=== PATIENT | female | born 1980 | race Caucasian/White ===

== ENCOUNTER 2017-12-21 08:31 | Observation (INO) | payer MEDICAID ==
[~2017-12-21] VITALS: Ht 157.5 cm; Wt 97.1 kg
[2017-12-21 08:32] VITALS: BP 131/75
--- NOTE | 2017-12-21 08:34 | NUR ---
PT TAKEN TO BED 9.
--- NOTE | 2017-12-21 08:40 | NUR ---
T. CAME INTO ED W/ C/O CHEST PAIN THAT STARTED YESTERDAY MORNING. PT. STATES " MY CHEST HURTS SINCE YESTERDAY MORNING AND ITS CONTINOUS AND SHARP MORE TOWARDS MY LEFT SIDE AND IT GOES DOWN MY L ARM AND TO MY L SHOULDER BUT MY ARM DOESNT HAVE PAIN JUST NUMBNESS". PT. STATES SHE DID VOMIT YESTERDAY BUT NOT TODAY . PT. SAYS SHE HAS MINIMAL NAUSEA. PT. DENIES SOB, PT. DENIES HAVING DIAHRRHEA. PT. IS P:0 A: 2 L: 2 . OBGYN ESTABLISHED IN [place]. DENIES ANY FOUL SMELLING DISCHARGE. HEART TONES ASSESSED AT 203. SKIN WARM TO TOUCH AND WARM. DR. DEVINE NOTIFIED. WILL CONTINUE TO MONITOR. SAFETY PRECAUTIONS IMPLEMENTED.
[2017-12-21] MEDS ORDERED: ACETAMINOPHEN EXTRA STRENGTH 500 MG TAB PO ONE (09:00)
[2017-12-21] MEDS ORDERED: NACL 0.9% 1,000 ML IV ONE ×2 (09:00→09:30)
--- NOTE | 2017-12-21 10:35 | NUR ---
PT. IN ROOM RESTING COMFORTABLY, RR EVEN AND UNLABORED, BED IN LOWEST POSITION. WILL CONTINUE TO MONITOR.
[2017-12-21 10:36] LABS: APPEARANCE,URINE HAZY (CLEAR); BILIRUBIN,URINE NEGATIVE (NEGATIVE); BLOOD, URINE 1+ (NEGATIVE); COLOR,URINE YELLOW (YELLOW); LEUKOCYTE ESTERASE ,URINE NEGATIVE (NEGATIVE); NITRITE, URINE NEGATIVE (NEGATIVE); UGLUCOSE NEGATIVE (NEGATIVE)
[2017-12-21 10:48] LABS: RBC,URINE 0-5 (RARE) /HPF (0-5); WBC,URINE 0-5 (RARE) /HPF (0-5)
--- NOTE | 2017-12-21 10:55 | NUR ---
HEART TONES AT 150BPM. DR. ELLIS NOTIFIED. WILL CONTINUE TO MONITOR.
--- NOTE | 2017-12-21 11:40 | NUR ---
Patient discharged with v/s stable. Written and verbal after care instructions given and explained. Patient alert, oriented and verbalized understanding of instructions. Ambulatory with steady gait. All questions addressed prior to discharge. ID band removed. Patient advised to follow up with PMD. Rx of CLARITIN AND TYLENOL given. Patient educated on indication of medication including possible reaction and side effects. Opportunity to ask questions provided and answered.
[2017-12-21 11:41] VITALS: BP 114/87
== END 2017-12-21 14:55 | disposition home or self-care (01) ==
LOC: MED 08:31 → MLD 12:05
PROVIDERS: ADMIT Obstetrics & Gynecology; ATTEND Obstetrics & Gynecology
DX: O26.893 Other specified pregnancy related conditions, third trimester (principal); R07.89 Other chest pain; Z3A.38 38 weeks gestation of pregnancy
CPT/HCPCS: 71045; 76805; 81001; 93005; 96360; 96361; 99285; G0378; Q0092

== ENCOUNTER 2022-10-27 02:50 | Emergency (ER) | payer MEDICAID ==
[~2022-10-27] VITALS: Ht 160 cm; Wt 79.4 kg
[2022-10-27 02:55] VITALS: BP 137/79
--- NOTE | 2022-10-27 02:58 | NUR ---
TO LOBBY A/W BED AMBULATORY
[2022-10-27 03:00] VITALS: BP 137/79
--- NOTE | 2022-10-27 04:13 | NUR ---
SEEN AND EXAMINED BY LATHA
[2022-10-27] MEDS ORDERED: AZIT250T4 PO (04:43)
[2022-10-27] MEDS ORDERED: ROBAC PO (04:43)
--- NOTE | 2022-10-27 05:07 | NUR ---
Patient discharged with v/s stable. Written and verbal after care instructions given and explained. Patient alert, oriented and verbalized understanding of instructions. Ambulatory with steady gait. All questions addressed prior to discharge. ID band removed. Patient advised to follow up with PMD. Rx of ZITHROMAX AND GUAIFENESIN given. Patient educated on indication of medication including possible reaction and side effects. Opportunity to ask questions provided and answered.
== END 2022-10-27 05:07 | disposition home or self-care (01) ==
LOC: MED 02:50
DX: J20.9 Acute bronchitis, unspecified (principal); E11.9 Type 2 diabetes mellitus without complications; I10 Essential (primary) hypertension; Z79.899 Other long term (current) drug therapy; Z79.2 Long term (current) use of antibiotics
CPT/HCPCS: 71045; 87081; 99284

== ENCOUNTER 2023-03-25 08:35 | Emergency (ER) | payer MEDICAID ==
[~2023-03-25] VITALS: Ht 170.2 cm; Wt 93.6 kg
[~2023-03-25 08:35] MED LIST: AZIT250T4 PO; ROBAC PO
[2023-03-25 08:44] VITALS: BP 112/81; PULSE 79; RESP 18; O2SAT 95
--- NOTE | 2023-03-25 08:55 | NUR ---
PT NASAL SWABBED FOR COVID AND FLU, SPECIMEN SENT TO LAB
--- NOTE | 2023-03-25 08:55 | NUR ---
REQUESTED URINE FROM PT, AMBULATED TO RESTROOM FOR SAMPLE
[2023-03-25] MEDS ORDERED: BENZ100C6 PO (11:28)
[2023-03-25] MEDS ORDERED: NIRM1TAB5 PO (11:28)
[2023-03-25 11:35] VITALS: BP 115/79; PULSE 76; RESP 20; TEMP 97.7; O2SAT 96
--- NOTE | 2023-03-25 11:35 | NUR ---
Patient discharged with v/s stable. Written and verbal after care instructions given and explained. Patient alert, oriented and verbalized understanding of instructions. Ambulatory with steady gait. All questions addressed prior to discharge. ID band removed. Patient advised to follow up with PMD. Rx of benzonate,paxlovid given. Patient educated on indication of medication including possible reaction and side effects. Opportunity to ask questions provided and answered.
== END 2023-03-25 11:35 | disposition home or self-care (01) ==
LOC: MED 08:35
DX: U07.1 COVID-19 (principal); E11.9 Type 2 diabetes mellitus without complications; I10 Essential (primary) hypertension; Z79.4 Long term (current) use of insulin; Z79.899 Other long term (current) drug therapy
CPT/HCPCS: 99283